=== PATIENT | female | born 1950 | race Asian ===

== ENCOUNTER 2016-06-22 09:36 | Emergency (ER) | payer MEDICARE ==
[~2016-06-22] VITALS: Ht 162.6 cm; Wt 70.0 kg
[~2016-06-22 09:36] MED LIST: ASPI-556 PO; LOSA1TAB37 PO
[2016-06-22] MEDS ORDERED: KETOROLAC TROMETHAMINE 60 MG/2 ML VIAL IM ONE (11:45)
[2016-06-22 13:10] VITALS: BP 132/76
== END 2016-06-22 13:13 | disposition home or self-care (01) ==
LOC: EMS 09:37
DX: S40.012A Contusion of left shoulder, initial encounter (principal); I10 Essential (primary) hypertension; Z79.82 Long term (current) use of aspirin; W19.XXXA Unspecified fall, initial encounter; Y93.9 Activity, unspecified; Y92.89 Other specified places as the place of occurrence of the external cause; Y99.8 Other external cause status
CPT/HCPCS: 73030; 96372; 99284; J1885